=== PATIENT | female | born 1985 | race Two or more races ===

== ENCOUNTER 2018-09-23 18:32 | Inpatient (IN) | payer OTHER ==
[~2018-09-23] VITALS: Ht 167.6 cm; Wt 85.7 kg
[2018-09-23] MEDS ORDERED: PRENATAL TABLE1 EAC1 PO ×2 (20:24→20:27)
[2018-09-23] MEDS ORDERED: GLYBURIDE5 MG PO ×3 (20:26→20:27)
[2018-09-23] MEDS ORDERED: SYNTHROID75 MCG PO (20:27)
[2018-09-27] MEDS ORDERED: GAS-X125 MG PO (11:18)
[2018-09-27] MEDS ORDERED: COLACE100 MG PO (11:18)
[2018-09-27] MEDS ORDERED: IBUPROFEN400 MG PO (11:19)
== END 2018-09-27 16:19 | disposition home or self-care (01) | DRG 787 ==
LOC: OBS/DEL 18:32 → LDR 20:30 → OB/GYN 20:30
PROVIDERS: Obstetrics & Gynecology; ADMIT Obstetrics & Gynecology
PROC: 4A1HXCZ Monitoring of Products of Conception, Cardiac Rate, External Approach (ICD-10-PCS; 2018-09-23)
PROC: 3E033VJ Introduction of Other Hormone into Peripheral Vein, Percutaneous Approach (ICD-10-PCS; 2018-09-24)
PROC: 10D00Z1 Extraction of Products of Conception, Low, Open Approach (ICD-10-PCS; principal; 2018-09-24 18:00)
DX: O61.0 Failed medical induction of labor (principal); O14.03 Mild to moderate pre-eclampsia, third trimester; O24.410 Gestational diabetes mellitus in pregnancy, diet controlled; O99.283 Endocrine, nutritional and metabolic diseases complicating pregnancy, third trimester; E03.8 Other specified hypothyroidism; Z3A.38 38 weeks gestation of pregnancy; Z37.0 Single live birth; Z22.330 Carrier of Group B streptococcus